=== PATIENT | male | born 1995 | race African-American/Black ===

== ENCOUNTER 2021-01-25 15:15 | Emergency (ER) | payer OTHER ==
[~2021-01-25] VITALS: Ht 182.9 cm; Wt 59.1 kg
[2021-01-25] MEDS ORDERED: LIDOCAINE 1% 10 ML VIAL ID ONE (16:45)
[2021-01-25] MEDS ORDERED: HYDROCODONE/ACETAMINOPHEN 5-325 MG TABLET PO ONE ×2 (16:45)
[2021-01-25] MEDS ORDERED: CEPHALEXIN MONOHYDRATE 500 MG CAPSULE PO ONE (16:45)
[2021-01-25] MEDS ORDERED: SULFAMETHOX/TRIMETH DS 800-160 MG/TABLET PO ONE (16:45)
[2021-01-25 18:30] VITALS: BP 125/62
== END 2021-01-25 18:38 | disposition home or self-care (01) ==
LOC: EMS 15:17
DX: L03.011 Cellulitis of right finger (principal)
CPT/HCPCS: 99284; J3490

== ENCOUNTER 2021-07-26 13:23 | Emergency (ER) | payer OTHER ==
[~2021-07-26] VITALS: Ht 172.7 cm; Wt 68.2 kg
[2021-07-26] MEDS ORDERED: LIDOCAINE 1% 10 ML VIAL SQ ONE (13:30)
[2021-07-26] MEDS ORDERED: BACITRACIN 0.9 GM PACKET OINTMENT TP ONE (13:30)
[2021-07-26] MEDS ORDERED: PERTUSS(ACELL),DIPH,TET VAC/PF 0.5 ML SYRINGE IM. ONE (13:30)
[2021-07-26 13:39] LABS: BASOPHILS % (AUTO) 0.5 % (0.0-2.0); HEMATOCRIT 41.5 % (41-53); HEMOGLOBIN 13.5 g/dL (13.5-17.5); LYMPHOCYTES # (AUTO) 2.6 K/uL (1.0-4.8); LYMPHOCYTES % (AUTO) 22.5 % (22.0-44.0); MEAN CORPUSCULAR HEMOGLOBIN 27.2 pg (26.0-34.0); MEAN CORPUSCULAR HGB CONC 32.4 G/dL (31.0-37.0); MEAN CORPUSCULAR VOLUME 84 fL (80-100); MONOCYTES # (AUTO) 1.3 K/uL (0.1-1.0); MONOCYTES % (AUTO) 10.8 % (2.0-9.0); NEUTROPHILS # (AUTO) 7.5 K/uL (1.8-7.7); NEUTROPHILS % (AUTO) 64.2 % (40.0-70.0); PLATELET COUNT (AUTO) 206 K/uL (150-450); RED BLOOD CELL COUNT(AUTO) 4.94 MIL/uL (4.50-5.90); RED CELL DISTRIBUTION WIDTH 16.6 % (11.5-14.5)
[2021-07-26 13:51] LABS: ANION GAP 6 mmol/L (8-16); CALCIUM, TOTAL 9.6 mg/dL (8.8-10.5); CARBON DIOXIDE 32 mmol/L (22-29); CHLORIDE 105 mmol/L (98-107); CREATININE 0.96 mg/dL (0.60-1.30); GLOMERULAR FILTR. RATE CALC > 60 mL/min (>60); GLUCOSE,RANDOM 100 mg/dL (70-110); POTASSIUM 3.4 mmol/L (3.5-5.1); SODIUM SERUM 143 mmol/L (136-145); UREA NITROGEN, BLOOD 6 mg/dL (7-18)
[2021-07-26] MEDS ORDERED: KETOROLAC TROMETHAMINE 30 MG/ML VIAL IVP ONE (14:30)
[2021-07-26 15:00] VITALS: BP 125/78
[2021-07-29] MEDS ORDERED: KETOROLAC TROMETHAMINE 30 MG/ML VIAL IM ONE (12:00)
[2021-07-29] MEDS ORDERED: CEPHALEXIN MONOHYDRATE 500 MG CAPSULE PO ONE (12:00)
== END 2021-07-26 15:28 | disposition home or self-care (01) ==
LOC: EMS 13:23
DX: S41.112A Laceration without foreign body of left upper arm, initial encounter (principal); F17.210 Nicotine dependence, cigarettes, uncomplicated; W45.8XXA Other foreign body or object entering through skin, initial encounter; Y93.89 Activity, other specified; Y92.89 Other specified places as the place of occurrence of the external cause; Y99.8 Other external cause status
CPT/HCPCS: 12002; 36415; 71045; 80048; 85025; 90471; 90715; 96374; 99284; J1885; J3490

== ENCOUNTER 2021-07-29 11:23 | Emergency (ER) | payer OTHER ==
[~2021-07-29] VITALS: Ht 182.9 cm; Wt 72.7 kg
[2021-07-29 12:46] VITALS: BP 110/60
== END 2021-07-29 12:46 | disposition home or self-care (01) ==
LOC: EMS 11:26
DX: S21.212A Laceration without foreign body of left back wall of thorax without penetration into thoracic cavity, initial encounter (principal); F17.210 Nicotine dependence, cigarettes, uncomplicated; F12.90 Cannabis use, unspecified, uncomplicated; W45.8XXA Other foreign body or object entering through skin, initial encounter; Y93.89 Activity, other specified; Y92.89 Other specified places as the place of occurrence of the external cause; Y99.8 Other external cause status
CPT/HCPCS: 71045; 99283